=== PATIENT | male | born 1960 | race Caucasian/White ===

== ENCOUNTER 2018-08-07 16:43 | Emergency (ER) | payer OTHER ==
[~2018-08-07] VITALS: Ht 172.7 cm; Wt 88.9 kg
[2018-08-07 17:09] VITALS: BP 149/86
--- NOTE | 2018-08-07 17:12 | PHYS DOC ---
Adult General Chief Complaint Chief Complaint: BACK PAIN OR INJURY HPI HPI Patient is a 58 year old M who presents after a fall from 8 feet onto concrete. He states that he hit the left side of his trunk. He has minimal pain and abrasions on the left side of his trunk. He also notes an abrasion on the left knee as well as the right elbow. He has no other associated symptoms. His pain is worse with palpation Review of Systems Review of Systems Constitutional: Denies fever or chills [] Eyes: Denies change in visual acuity, redness, or eye pain [] HENT: Denies nasal congestion or sore throat [] Respiratory: Denies cough or shortness of breath [] Cardiovascular: No additional information not addressed in HPI [] GI: Denies abdominal pain, nausea, vomiting, bloody stools or diarrhea [] : Denies dysuria or hematuria [] Musculoskeletal: Denies back pain or joint pain [] Integument: Denies rash or skin lesions [] Neurologic: Denies headache, focal weakness or sensory changes [] Endocrine: Denies polyuria or polydipsia [] All other systems were reviewed and found to be within normal limits, except as documented in this note. Family History Family History No pertinent medical sugar was reported Current Medications Current Medications Current medications reviewed Allergies Allergies No known allergies Physical Exam Physical Exam Constitutional: Well developed, well nourished, no acute distress, non-toxic appearance. [] HENT: Normocephalic, atraumatic Eyes: EOMI, conjunctiva normal, no discharge. [] Neck: Normal range of motion, no tenderness, supple, no stridor. [] Cardiovascular:Heart rate regular rhythm, Lungs & Thorax: Bilateral breath sounds clear to auscultation [] abrasion over the left lateral trunk Abdomen: Bowel sounds normal, soft, no tenderness, no masses, no pulsatile masses. [] Skin: Warm, dry, no erythema, no rash. [] Back: No tenderness, no CVA tenderness. [] Abrasion over the mid back to the right of the spine. No spinous tenderness was noted Extremities: No tenderness, no cyanosis, no clubbing, ROM intact, no edema. [] Bruise on the right elbow, abrasion over the left knee Neurologic: Alert and oriented X 3, normal motor function, normal sensory function, no focal deficits noted. [] Psychologic: Affect normal, judgement normal, mood normal. [] Current Patient Data Vital Signs Normal vital signs. Please review nursing documentation for specifics EKG EKG [] Radiology/Procedures Radiology/Procedures No imaging was indicated as he had no significant signs of tenderness. He had a normal gait. Imaging was also declined by the patient Course & Med Decision Making Course & Med Decision Making Pertinent Labs and Imaging studies reviewed. (See chart for details) [] Dragon Disclaimer Dragon Disclaimer This electronic medical record was generated, in whole or in part, using a voice recognition dictation system. Departure Departure: Impression: Primary Impression: Rib contusion Disposition: HOME, SELF-CARE Condition: STABLE Referrals: TRISH TRAN MD (PCP) Patient Instructions: Rib Contusion Additional Instructions: Marshall was seen in the emergency department after a fall. No emergency medical condition is found in history physical exam. He was advised to return to the emergency room if he develops new or worsening symptoms. He was also advised to follow-up with his primary care doctor as needed for further management. Problem Qualifiers Primary Impression: Rib contusion Encounter type: initial encounter Laterality: left Qualified Codes: S20.212A - Contusion of left front wall of thorax, initial encounter TANGELA RATLIFF MD Aug 07, 2018 17:11
== END 2018-08-07 17:18 | disposition home or self-care (01) ==
LOC: ER 16:43
DX: S20.212A Contusion of left front wall of thorax, initial encounter (principal); S50.01XA Contusion of right elbow, initial encounter; S80.212A Abrasion, left knee, initial encounter; W17.89XA Other fall from one level to another, initial encounter; Y93.89 Activity, other specified; Y92.89 Other specified places as the place of occurrence of the external cause; Y99.8 Other external cause status
CPT/HCPCS: 99281

== ENCOUNTER → 2020-01-21 | Outpatient (CLI) | payer OTHER ==
--- NOTE | 2020-01-21 16:07 | CARD ---
MR#: [id number] Date of Study: 01/21/2020 Ordering Physician: DERECK DAWN, Referring Physician: DERECK DAWN, Tech: Lisa Caicedo SILVESTRE APPROVED REPORT EXAM: Two-dimensional and M-mode echocardiogram with Doppler and color Doppler. Other Information Quality : Good INDICATION Coronary Atherosclerosis 2D DIMENSIONS RVDd2.7 (2.9-3.5cm)Left Atrium(2D)3.5 (1.6-4.0cm) IVSd1.0 (0.7-1.1cm)Aortic Root(2D)3.0 (2.0-3.7cm) LVDd5.2 (3.9-5.9cm)LVOT Diameter2.0 (1.8-2.4cm) PWd1.0 (0.7-1.1cm)LVDs3.5 (2.5-4.0cm) FS (%) 31.9 %SV76.2 ml LVEF(%)59.6 (>50%) Aortic Valve AoV Peak Sanjay.185.8cm/sAoV VTI28.2cm AO Peak GR.13.8mmHgLVOT Peak Sanjay.137.9cm/s LVOT VTI 24.47cmAO Mean GR.6mmHg DARREL (VMAX)2.64py0MPD (VTI)2.63cm2 Mitral Valve MV E Dprgijcc39.5cm/sMV DECEL VDXO806dd MV A Ceqcnfse518.8cm/sE/A Ratio0.8 Tricuspid Valve TR P. Fymrjili637id/sRAP NLCWEQFG7toTa TR Peak Gr.55ogFxTTEF68twVm Pulmonary Vein S1 Ubalgafe75.7cm/sD2 Wnkpknnn31.1cm/s LEFT VENTRICLE The left ventricle is normal size. There is normal left ventricular wall thickness. The left ventricu lar systolic function is normal and the ejection fraction is within normal range. The Ejection Fracti on is 55-60%. There is normal LV segmental wall motion. Transmitral Doppler flow pattern is Grade I-a bnormal relaxation pattern. RIGHT VENTRICLE The right ventricle is normal size. The right ventricular systolic function is normal. ATRIA The left atrium size is normal. The right atrium size is normal. The interatrial septum is intact wit h no evidence for an atrial septal defect or patent foramen ovale as noted on 2-D or Doppler imaging. AORTIC VALVE The aortic valve is calcified but opens well. Doppler and Color Flow revealed no significant aortic r egurgitation. There is no significant aortic valvular stenosis. MITRAL VALVE The mitral valve is normal in structure and function. There is no evidence of mitral valve prolapse. There is no mitral valve stenosis. Doppler and Color-flow revealed trace to mild mitral regurgitation . TRICUSPID VALVE The tricuspid valve is normal in structure and function. Doppler and Color Flow revealed mild tricusp id regurgitation. The PA pressure was estimated at 22 mmHg. There is no tricuspid valve stenosis. PULMONIC VALVE The pulmonary valve is normal in structure and function. Doppler and Color Flow revealed trace pulmon ic valvular regurgitation. There is no pulmonic valvular stenosis. GREAT VESSELS The aortic root is normal in size. The ascending aorta is normal in size. The IVC is normal in size a nd collapses >50% with inspiration. PERICARDIAL EFFUSION There is no evidence of significant pericardial effusion. Critical Notification Critical Value: No <Conclusion> The left ventricular systolic function is normal and the ejection fraction is within normal range. Th e Ejection Fraction is 55-60%. There is normal LV segmental wall motion. Signed by : Dereck Dawn, Electronically Approved : 01/21/2020 16:07:08
== END ==
LOC: ECHO 13:50
PROVIDERS: ATTEND Internal Medicine Cardiovascular Disease
DX: I08.3 Combined rheumatic disorders of mitral, aortic and tricuspid valves (principal); I25.10 Atherosclerotic heart disease of native coronary artery without angina pectoris
CPT/HCPCS: 93306

== ENCOUNTER → 2020-02-11 | Outpatient (CLI) | payer OTHER ==
--- NOTE | 2020-02-11 12:03 | RAD ---
MR#: [id number] Date of Study: 02/11/2020 Ordering Physician: DIGNA MOSHER, Referring Physician: DIGNA MOSHER, Tech: Meg Ghosh RVT,NELI APPROVED REPORT Patient Location: OUT-PATIENT Laterality:Bilateral Indications Grayscale images of the bilateral carotid vessels demonstrate mild diffuse intimal hyperplasia. The left vertebral artery is not visualized. Spectral waveforms and color Doppler of the bilateral common carotid, internal and external carotid v essels are unremarkable. Overall 0 to less than 50% stenosis. Normal ICA to CCA ratios bilaterally. Risk Factors Hypertension: CAD, Doppler Spectral Velocity Analysis Right Left pCCA 117/27 cm/spCCA 97/25 cm/s mCCA 112/24 cm/smCCA 91/24 cm/s dCCA 100/27 cm/sdCCA 76/22 cm/s ECA 120/15 cm/sECA 85/14 cm/s pICA 85/21 cm/spICA 63/21 cm/s Eric 91/28 cm/smICA 88/31 cm/s dICA 91/27 cm/sdICA 113/44 cm/s Vert. 59/19 cm/sVert. ICA/CCA 0.78ICA/CCA 1.16 Critical Notification Critical Value: No <Conclusion> 1. No significant carotid occlusive disease bilaterally. Signed by : Pepe Conteh, Electronically Approved : 02/11/2020 12:03:07
--- NOTE | 2020-02-11 14:35 | RAD ---
MR#: [id number] Date of Study: 02/11/2020 Ordering Physician: DERECK DAWN, Referring Physician: NIKITA DUNCAN Tech: RT Macey (R) (N) APPROVED REPORT Test Type: Exercise Stress Nurse/Tech: Carol Torres Test Indications: Chest pain Cardiac History: No known cardiac Medications: See EHR Resting Heart Rate: 61 bpm Resting Blood Pressure: 156/90mmHg Pretest Chest Pain: No chest pain Stress Symptoms Dyspnea POST EXERCISE Reason for Termination: Reached target heart rate Target HR: 136 Max HR: 151 bpm 111% of Maximum Predicted HR: 136 bpm Exercise duration: 8 min:sec, Stage Exercise capacity: 10.0 125%METs Max Blood Pressure: 166/79mmHg Blood Pressure response to exercise: Normal blood pressure response during stress. Heart Rate response to exercise: normal Chest Pain: No. Arrhythmia: No. ST Change: No. INTERPRETATION Stress EKG Conclusion: No evidence of stress induced EKG changes. Imaging Protocol IMAGE PROTOCOL: Rest Tc-99m/stress Tc-99m 1 day Rest: Stress: Viability: Radiopharm.Tc99m QiaenzhfrQh59y Sestamibi Eyww62yYa 33mCi Duration 15min. 15min. Img Date 02/11/2020 02/11/2020 Inj-Img Tdmg66kzp. 60min. Rest Admin Site:IV - Left AntecubitalAdministrator: RT Macey (R)(N) Stress Admin Site: IV - Left AntecubitalAdministrator: RT Macey (R)(N) STRESS DATA End Diast. Vol.106.0mlAv. Heart Rate76.0bpm End Syst. Vol.29.0mlCO Index BSA0.0L/min Myocardial Ugdb129.0gEject. Pwedmgxd59.0% Stress Rates Pk. Fill Rate2.68EDV/secLVtime Pk. Fill 205.65msec Pk. Empty Rate4.11ESV/secLVtime Pk. Fiqlq802.15msec 07/19 Pk. Fill1.93EDV/sec Stress Scores Regional WT0.00Summed WT5.00 Regional WM0.00Summed WM2.00 The rest and stress images show normal perfusion, normal contraction and thickening. LV Perf. Quant 17 Seg. SSS0.00 17 Seg. SRS2.00 17 Seg. SDS0.00 Stress Defect Extent (% LAD)0.00Rest Defect Extent (% LAD)0.00Rev. Defect Extent (% LAD)0.00 Stress Defect Extent (% LCX) 0.00Rest Defect Extent (% LCX)0.00Rev. Defect Extent (% LCX)0.00 Stress Defect Extent (% RCA)0.00Rest Defect Extent (% RCA)0.00Rev. Defect Extent (% RCA)0.00 Stress Defect Extent (% EFFIE)0.00Rest Defect Extent (% EFFIE)0.00Rev. Defect Extent (% EFFIE)0.00 Other Information Quality:Fair Risk Assessment: Low Risk Conclusion 1. No evidence of EKG changes with stress testing. 2. Normal perfusion at stress/rest. 3. Low risk study. 4. EF > 60%. Signed by : Dereck Dawn, Electronically Approved : 02/11/2020 14:34:42
== END | disposition home or self-care (01) ==
LOC: NM 07:22
PROVIDERS: ATTEND Internal Medicine Cardiovascular Disease
DX: I25.10 Atherosclerotic heart disease of native coronary artery without angina pectoris (principal); I77.3 Arterial fibromuscular dysplasia; I10 Essential (primary) hypertension
CPT/HCPCS: 78452; 93017; 93880; 96376; A9500